=== PATIENT | male | born 2000 | race Caucasian/White ===

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

== ENCOUNTER 2021-09-23 06:34 | Emergency (ER) | payer OTHER ==
--- OUTSIDE RECORDS SUMMARY | 2021-09-23 06:38 | XMS REPORT | Continuity of Care Document ---
:2000 Author Organization [facility] t Address [address] [place] [address] [address] [place] [address] Care Team Providers Name Role Phone Care, Urgent Attending Clinician Unavailable Unknown Attending Clinician Unavailable Marquita LABOYP Attending Clinician UNKNOWN Attending Clinician Unavailable Payers Payer Name Policy Type Policy Number Effective Date Expiration Date S ource Problems Condition Condition Condition Status Onset Resolution Last Treating Co mments Source Name Details Category Date Date Treatment Clinician Date No known No known Disease Unive rs active active ity of problems problems [facility] Allergies, Adverse Reactions, Alerts Allergy Allergy Status Severity Reaction(s) Onset Inactive Treating Comm ents Source Name Type Date Date Clinician NO KNOWN Drug Active [facility] ALLERGIE Class ity of S [facility] Social History Social Habit Start Date Stop Date Quantity Comments [facility] to [facility]2 Not sure [facility] [place] [facility] Smoking Status Start Date Stop Date Source Unknown if ever smoked [facility] Medications Ordered Filled Start Stop Current Ordering Indication Dosage Frequency Signature Comments Components Source Medication Medication Date Date Medication? Clinician (SIG) Name Name No known No Univers medications [facility] Vital Signs Vital Name Observation Time Observation Value Comments Source Oxygen saturation in 2020-09-12 01:01:00 98 /min [facility] Arterial blood by [facility] Pulse oximetry Branch Respiratory rate 2020-09-12 01:01:00 16 /min [facility] Procedures This patient has no known procedures. Encounters Start End Encounter Admission Attending Care Care Encounter Source Date/Time Date/Time Type Type Clinicians Facility Department ID 2020-09-11 2020-09-11 Urgent Care, [facility] [id number] [facility] 18:47:52 19:15:10 Care Unknown, Attending Pediatric [id number] ity of Sandhya Juárez and [id number] [place] Adult [id number] [place] [id number] [facility] 2020-09-11 2020-09-11 Outpatient R UNKNOWN, [facility] [id number] Univers 19:00:00 19:00:00 ATTENDING ity of [facility] Results This patient has no known results.
[2021-09-23] MEDS ORDERED: KETOROLAC 30 MG/ML INJ ONE (07:52)
[2021-09-23] MEDS ORDERED: dexAMETHasone 10 MG/ML VIAL ONE (07:52)
[2021-09-23 08:55] LABS: SARS-COV-2 RT PCR NEGATIVE (NEGATIVE)
--- NOTE | 2021-09-23 09:38 | ER ---
Nurse's Notes [facility] Name: Orlando Renner Age: 21 yrs Sex: Male : 2000 Arrival Date: 09/23/2021 Time: 06:39 Bed 10 Private MD: Diagnosis: Acute pharyngitis, unspecified;Otitis media, unspecified, right ear Presentation: 09/23 07:17 Chief complaint: Parent and/or Guardian states: last week his throat was hurting and he iw had white pus, was negative for strep and covid last week , still having a lot of pain in his throat. Coronavirus screen: Client presents with at least one sign or symptom that may indicate coronavirus-19. Ebola Screen: Patient negative for fever greater than or equal to 101.5 degrees Fahrenheit, and additional compatible Ebola Virus Disease symptoms Patient denies exposure to infectious person. Patient denies travel to an Ebola-affected area in the 21 days before illness onset. No symptoms or risks identified at this time. Initial Sepsis Screen: Does the patient meet any 2 criteria? No. Patient's initial sepsis screen is negative. Does the patient have a suspected source of infection? No. Patient's initial sepsis screen is negative. Risk Assessment: Do you want to hurt yourself or someone else? Patient reports no desire to harm self or others. Onset of symptoms was September 18, 2020. 07:17 Method Of Arrival: Ambulatory iw 07:17 Acuity: CARA 3 iw Triage Assessment: 09:00 General: Appears in no apparent distress. Behavior is calm, cooperative. Respiratory: iw Reports. 09:00 Respiratory: Onset: The symptoms/episode began/occurred the patient has mild shortness iw of breath. Historical: - Allergies: 07:19 No Known Allergies; iw - Home Meds: 07:19 Adderall XR Oral [Active]; iw - PMHx: 07:19 ADD/ADHD; iw - PSHx: 07:19 None; iw - Immunization history:: Client reports having NOT received the Covid vaccine. - Social history:: Smoking status: Patient denies any tobacco usage or history of. Screenin:44 Abuse screen: Denies threats or abuse. Denies injuries from another. Nutritional iw screening: No deficits noted. Tuberculosis screening: No symptoms or risk factors identified. Fall Risk None identified. Assessment: 09:44 Reassessment: Patient appears in no apparent distress at this time. Patient and/or iw family updated on plan of care and expected duration. Pain level reassessed. Patient is alert, oriented x 3, equal unlabored respirations, skin warm/dry/pink. 09:44 Pain: Complains of pain in throat. Cardiovascular: Rhythm is regular. Respiratory: iw Airway is patent Respiratory effort is even, unlabored, Breath sounds are clear bilaterally. Vital Signs: 07:17 BP 137 / 74; Pulse 64; Resp 16; Temp 98.5; Pulse Ox 98% on R/A; iw ED Course: 06:39 Patient arrived in ED. wm 07:19 Triage completed. iw 07:20 Arm band placed on. iw 07:21 Danielito De La Cruz NP is PHCP. pm1 07:34 Idania Wilks, RN is Primary Nurse. iw 07:34 COVID-19/FLU A+B (Document "Date of Onset" if Symptomatic) Sent. mh5 07:34 Strep Sent. mh5 07:34 COVID swab sent to lab. Flu and/or RSV swab sent to lab. Strep swab sent to lab. mh5 07:36 Mihai Phillips MD is Attending Physician. pm1 07:36 Patient has correct armband on for positive identification. Bed in low position. Call mh5 light in reach. Warm blanket given. Pulse ox on. NIBP on. 07:50 [place] Screen Profile Sent. 5 09:44 No provider procedures requiring assistance completed. Patient did not have IV access iw during this emergency room visit. Administered Medications: 08:00 Drug: Decadron (dexamethasone) 10 mg Route: IM; Site: right gluteus; iw 12:23 Follow up: Response: No adverse reaction iw 08:00 Drug: Ketorolac 60 mg Route: IM; Site: left gluteus; iw 12:22 Follow up: Response: No adverse reaction iw Outcome: 09:38 Discharge ordered by . pm1 09:44 Discharged to home ambulatory, with family. iw 09:44 Condition: good 09:44 Discharge instructions given to patient, family, Instructed on discharge instructions, follow up and referral plans. medication usage, Demonstrated understanding of instructions, follow-up care, medications, Prescriptions given X 2. 09:45 Patient left the ED. iw Signatures: Idania Wilks, RN RN iw Danielito De La Cruz, DEVICE ENGINEER DEVICE ENGINEER pm1 , Sandhya 5 Anjana Cardenas
--- NOTE | 2021-09-23 09:38 | EDPHYS ---
Physician Documentation [facility] Name: Orlando Renner Age: 21 yrs Sex: Male : 2000 Arrival Date: 09/23/2021 Time: 06:39 Bed 10 Private MD: ED Physician Mihai Phillips HPI: 09/23 08:00 This 21 yrs old Male presents to ER via Ambulatory with complaints of Sore Throat. pm1 08:00 The patient presents with sore throat. The patient describes throat pain as raw, pm1 scratchy. Onset: The symptoms/episode began/occurred 1 week(s) ago. 08:00 Severity of symptoms: in the emergency department the symptoms are unchanged. Modifying pm1 factors: The symptoms are alleviated by nothing, the symptoms are aggravated by foods, swallowing, Patient's oral intake status: good unaware of sick contact. Associated signs and symptoms: Pertinent negatives cough, fever, nausea, vomiting. The patient has not experienced similar symptoms in the past. The patient has not recently seen a physician. Historical: - Allergies: 07:19 No Known Allergies; iw - Home Meds: 07:19 Adderall XR Oral [Active]; iw - PMHx: 07:19 ADD/ADHD; iw - PSHx: 07:19 None; iw - Immunization history:: Client reports having NOT received the Covid vaccine. - Social history:: Smoking status: Patient denies any tobacco usage or history of. ROS: 08:00 Constitutional: Negative for fever, chills, and weight loss. pm1 08:00 Cardiovascular: Negative for chest pain, palpitations, and edema, Respiratory: Negative for shortness of breath, cough, wheezing, and pleuritic chest pain, Abdomen/GI: Negative for abdominal pain, nausea, vomiting, diarrhea, and constipation, Back: Negative for injury and pain, MS/Extremity: Negative for injury and deformity, Skin: Negative for injury, rash, and discoloration, Neuro: Negative for headache, weakness, numbness, tingling, and seizure. 08:00 ENT: Positive for ear pain, sore throat. 08:00 Neck: Positive for swollen nodes. 08:00 All other systems are negative. Exam: 08:00 Constitutional: This is a well developed, well nourished patient who is awake, alert, pm1 and in no acute distress. Head/Face: Normocephalic, atraumatic. 08:00 Skin: Warm, dry with normal turgor. Normal color with no rashes, no lesions, and no evidence of cellulitis. MS/ Extremity: Pulses equal, no cyanosis. Neurovascular intact. Full, normal range of motion. 08:00 Eyes: Exam is negative for acute changes, Extraocular movements: intact throughout, Conjunctiva: no acute changes, no injection. 08:00 ENT: Exam is negative for acute changes, Mouth: no acute changes, Lips: normal, moist, Oral mucosa: normal, pink and intact, moist, Posterior pharynx: Tonsils: bilaterally enlarged, with erythema, with exudate, no ulcerations, peritonsillar mass, is not appreciated, pooling of secretions, is not appreciated. 08:00 Neck: Lymph nodes: lymphadenopathy is appreciated, anterior cervical nodes. 08:00 Cardiovascular: Exam negative for acute changes, Rate: normal, Rhythm: regular, Pulses: no pulse deficits are appreciated, Heart sounds: normal, normal S1and S2. 08:00 Respiratory: Exam negative for acute changes, respiratory distress, shortness of breath, Breath sounds: are clear throughout. 08:00 Abdomen/GI: Exam negative for acute changes, Inspection: abdomen appears normal, Palpation: abdomen is soft and non-tender, in all quadrants. 08:00 Neuro: Exam negative for acute changes, Orientation: is normal, Mentation: is normal, Motor: is normal, moves all fours. Vital Signs: 07:17 BP 137 / 74; Pulse 64; Resp 16; Temp 98.5; Pulse Ox 98% on R/A; iw MDM: 07:22 Patient medically screened. pm1 09:37 Data reviewed: vital signs. Data interpreted: Pulse oximetry: on room air is 98 %. pm1 Interpretation: normal. Counseling: I had a detailed discussion with the patient and/or guardian regarding: the historical points, exam findings, and any diagnostic results supporting the discharge/admit diagnosis, lab results, the need for outpatient follow up, to return to the emergency department if symptoms worsen or persist or if there are any questions or concerns that arise at home. 09/23 07:32 Order name: COVID-19/FLU A+B (Document "Date of Onset" if Symptomatic); Complete Time: pm1 09:03 09/23 07:32 Order name: Strep; Complete Time: 08:36 pm1 09/23 07:34 Order name: [place] Screen Profile; Complete Time: 08:24 pm1 09/23 08:35 Order name: Throat Culture EDMS Administered Medications: 08:00 Drug: Decadron (dexamethasone) 10 mg Route: IM; Site: right gluteus; iw 12:23 Follow up: Response: No adverse reaction iw 08:00 Drug: Ketorolac 60 mg Route: IM; Site: left gluteus; iw 12:22 Follow up: Response: No adverse reaction iw Disposition: 13:19 Co-signature as Attending Physician, Mihai Phillips MD I agree with the assessment and kdr plan of care. Disposition Summary: 09/23/21 09:38 Discharge Ordered Location: Home pm1 Problem: new pm1 Symptoms: have improved pm1 Condition: Stable pm1 Diagnosis - Acute pharyngitis, unspecified pm1 - Otitis media, unspecified, right ear pm1 Followup: pm1 - With: Emergency Department - When: As needed - Reason: Worsening of condition Followup: pm1 - With: Private Physician - When: 2 - 3 days - Reason: Recheck today's complaints, Continuance of care, Re-evaluation by your physician Discharge Instructions: - Discharge Summary Sheet pm1 - Otitis Media, Adult pm1 - Sore Throat pm1 Forms: - Medication Reconciliation Form pm1 - Thank You Letter pm1 - Antibiotic Education pm1 - Prescription Opioid Use pm1 Prescriptions: - Augmentin 875-125 mg Oral Tablet - take 1 tablet by ORAL route every 12 hours for 10 days; 20 tablet; Refills: 0, pm1 Product Selection Permitted - Tylenol-Codeine #3 300 mg-30 mg Oral - take 2 tablet by ORAL route every 6 hours As needed; 20 tablet; Refills: 0, pm1 Product Selection Permitted Signatures: Dispatcher [employer] EDMihai Hong MD MD kdr Williams, Irene, RN RN iw Danielito De La Cruz, LISA [employer] ARCHITECT pm1
[2021-09-23 09:50] VITALS: BP 137/74; TEMP 98.5; O2SAT 98
== END 2021-09-23 09:45 | disposition home or self-care (01) ==
LOC: ER 06:34
DX: J02.9 Acute pharyngitis, unspecified (principal); H66.91 Otitis media, unspecified, right ear; Z20.822 Contact with and (suspected) exposure to COVID-19
CPT/HCPCS: 87070; 36415; 86308; 87081; 0240U; 96372; 99284; J1100

== ENCOUNTER 2022-01-07 22:31 | Emergency (ER) | payer OTHER ==
--- OUTSIDE RECORDS SUMMARY | 2022-01-07 22:34 | XMS REPORT | Continuity of Care Document ---
:2000 Author Organization [facility] t Address [address] [place] [address] [address] [place] [address] Care Team Providers Name Role Phone Care, [...] rs active active ity of problems problems [facility] Allergies, Adverse Reactions, Alerts Allergy Allergy Status Severity Reaction(s) Onset Inactive Treating Comm ents Source Name Type Date Date Clinician NO KNOWN Drug Active Univers ALLERGIE Class ity of S [facility] Social History Social Habit Start Date Stop Date Quantity Comments [facility] to SARS-[facility]-2 Not sure [facility] [place] [facility] Smoking Status Start Date Stop Date Source Unknown if ever smoked [facility] Medications Ordered Filled Start Stop Current Ordering Indication Dosage Frequency Signature Comments Components Source Medication Medication Date Date Medication? Clinician (SIG) Name Name No known No Univers medications [facility] Vital Signs Vital Name Observation Time Observation Value Comments Source Oxygen saturation in 2020-09-12 01:01:00 98 /min [facility] Arterial blood by [facility] Pulse oximetry Branch Respiratory rate 2020-09-12 01:01:00 16 /min [facility] Procedures This patient has no known procedures. Encounters Start End Encounter Admission Attending Care Care Encounter Source Date/Time Date/Time Type Type Clinicians Facility Department ID 2020-09-11 2020-09-11 Urgent [facility], [facility] [id number] Univers 18:47:52 19:15:10 Care Unknown, Attending Pediatric [id number] ity of Sandhya Juárez and [id number] [place] Adult [id number] [place] [address] [facility] 2020-09-11 2020-09-11 Outpatient R UNKNOWN, [facility] [id number] Univers 19:00:00 19:00:00 ATTENDING ity of [facility] Results This patient has no known results.
--- NOTE | 2022-01-07 23:20 | ER ---
Nurse's Notes [facility] Name: Orlando Renner Age: 21 yrs Sex: Male : 2000 Arrival Date: 01/07/2022 Time: 22:40 Bed Waiting Private MD: Diagnosis: Acute pharyngitis, unspecified Presentation: 01/07 22:46 Chief complaint: Patient states: sore throat starting yesterday pain 10/10. body aches al4 started this morning. patient reports sweating all night, and taking Tylenol around 8pm for fever. Coronavirus screen: Vaccine status: Patient reports being unvaccinated. Ebola Screen: No symptoms or risks identified at this time. Initial Sepsis Screen: Does the patient meet any 2 criteria? No. Patient's initial sepsis screen is negative. Does the patient have a suspected source of infection? No. Patient's initial sepsis screen is negative. Risk Assessment: Do you want to hurt yourself or someone else? Patient reports no desire to harm self or others. Onset of symptoms was January 06, 2022. 22:46 Method Of Arrival: Ambulatory al4 22:46 Acuity: CARA 4 al4 Triage Assessment: 22:50 General: Appears in no apparent distress. uncomfortable, Behavior is calm, cooperative, al4 patient reports sore throat and generalized body aches. denies congestion, n/v/d . Pain: Complains of pain in throat Pain currently is 10 out of 10 on a pain scale. EENT: Throat is reddened. Neuro: Level of Consciousness is awake, alert, obeys commands, Oriented to person, place, time, situation. Cardiovascular: Patient's skin is warm and dry. Respiratory: Airway is patent Respiratory effort is unlabored, Respiratory pattern is regular, Breath sounds are clear bilaterally. Historical: - Allergies: 22:50 No Known Allergies; al4 - Immunization history:: Adult Immunizations up to date. - Social history:: Smoking status: Patient reports the use of cigarette tobacco products, denies chronic smoking, but will smoke occasionally, Reported history of juuling and/or vaping. Screenin:06 Abuse screen: Denies threats or abuse. Nutritional screening: No deficits noted. al4 Tuberculosis screening: No symptoms or risk factors identified. Fall Risk No fall in past 12 months (0 pts). No IV (0 pts). Ambulatory Aid- None/Bed Rest/Nurse Assist (0 pts). Gait- Normal/Bed Rest/Wheelchair (0 pts) Mental Status- Oriented to own ability (0 pts). Total Prieto Fall Scale indicates No Risk (0-24 pts). Assessment: 23:06 Reassessment: ER PA assessed patient in triage room. al4 23:09 Reassessment: see triage assessment. al4 23:12 Reassessment: Patient appears in no apparent distress at this time. Patient is alert, al4 oriented x 3, equal unlabored respirations, skin warm/dry/pink. 23:38 Reassessment: Patient appears in no apparent distress at this time. Patient is alert, al4 oriented x 3, equal unlabored respirations, skin warm/dry/pink. Vital Signs: 22:46 BP 128 / 78; Pulse 74; Resp 18; Temp 99.4(O); Pulse Ox 95% on R/A; Weight 70.31 kg; al4 Height 5 ft. 11 in. (180.34 cm); Pain 10/10; 23:25 BP 118 / 72; Pulse 60; Resp 18; Pulse Ox 100% ; al4 22:46 Body Mass Index 21.62 (70.31 kg, 180.34 cm) al4 ED Course: 22:40 Patient arrived in ED. jj6 22:50 Triage completed. al4 22:50 Arm band placed on left wrist. al4 23:05 Brando Russell is Primary Nurse. al4 23:06 Patient has correct armband on for positive identification. al4 23:06 Strep Sent. al4 23:06 No provider procedures requiring assistance completed. Patient did not have IV access al4 during this emergency room visit. 23:07 Mickey Maria PA is PHCP. kortney 23:07 Praveen Eaton MD is Attending Physician. kortney 23:20 Duyen Gomes MD is Referral Physician. [facility] Administered Medications: 23:29 Drug: Decadron (dexamethasone) 10 mg Route: IM; Site: left gluteus; al4 23:38 Follow up: Response: No adverse reaction al4 Outcome: 23:20 Discharge ordered by . kortney 23:38 Discharged to home ambulatory. al4 23:38 Condition: stable 23:38 Discharge instructions given to patient, Instructed on discharge instructions, follow up and referral plans. medication usage, Demonstrated understanding of instructions, follow-up care, medications, Prescriptions given X 1. 23:39 Patient left the ED. al4 Signatures: Mickey Maria PA PA jmm Jeffries, Jennifer jj6 Brando Russell al4 Corrections: (The following items were deleted from the chart) 23:07 22:50 EENT: Throat is pink al4 al4 23:08 22:50 Respiratory: Airway is patent Respiratory effort is unlabored, Respiratory al4 pattern is regular, al4 23:13 23:06 COVID-19/FLU A+B/RSV+[email or web address].BRZ drawn and sent. al4 EDMS
--- NOTE | 2022-01-07 23:20 | EDPHYS ---
Physician Documentation [facility] Name: Orlando Renner Age: 21 yrs Sex: Male : 2000 Arrival Date: 01/07/2022 Time: 22:40 Bed Waiting Private MD: ED Physician Praveen Eaton HPI: 01/07 23:17 This 21 yrs old Male presents to ER via Ambulatory with complaints of Sore Throat. jmm 23:17 The patient presents with sore throat. Onset: The symptoms/episode began/occurred jmm gradually. Modifying factors: The symptoms are alleviated by nothing, the symptoms are aggravated by nothing. This is a 21-year-old year old male with no chronic medical conditions that presents to the ED with complaints of sore throat beginning today. Complains of chills. Denies sob. . Historical: - Allergies: 22:50 No Known Allergies; al4 - Immunization history:: Adult Immunizations up to date. - Social history:: Smoking status: Patient reports the use of cigarette tobacco products, denies chronic smoking, but will smoke occasionally, Reported history of juuling and/or vaping. ROS: 23:17 Constitutional: Negative for fever, chills, and weight loss. jmm 23:17 Cardiovascular: Negative for chest pain, palpitations, and edema, Respiratory: Negative for shortness of breath, cough, wheezing, and pleuritic chest pain, Abdomen/GI: Negative for abdominal pain, nausea, vomiting, diarrhea, and constipation. 23:17 ENT: Positive for sore throat. 23:17 All other systems are negative. Exam: 23:17 Constitutional: This is a well developed, well nourished patient who is awake, alert, jmm and in no acute distress. Head/Face: atraumatic. Eyes: EOMI, no conjunctival erythema appreciated 23:17 Neck: Trachea midline, Supple Chest/axilla: Normal chest wall appearance and motion. Cardiovascular: Regular rate and rhythm. No edema appreciated Respiratory: Normal respirations, no respiratory distress appreciated Abdomen/GI: Non distended, soft Back: Normal ROM Skin: General appearance color normal MS/ Extremity: Moves all extremities, no obvious deformities appreciated, no edema noted to the lower extremities Neuro: Awake and alert Psych: Behavior is normal, Mood is normal, Patient is cooperative and pleasant 23:17 ENT: Posterior pharynx: Tonsils: enlarged on the right, enlarged on the left, with erythema, with exudate, erythema, that is moderate. Vital Signs: 22:46 BP 128 / 78; Pulse 74; Resp 18; Temp 99.4(O); Pulse Ox 95% on R/A; Weight 70.31 kg; al4 Height 5 ft. 11 in. (180.34 cm); Pain 10/10; 23:25 BP 118 / 72; Pulse 60; Resp 18; Pulse Ox 100% ; al4 22:46 Body Mass Index 21.62 (70.31 kg, 180.34 cm) al4 MDM: 23:18 Data reviewed: vital signs, nurses notes. Counseling: I had a detailed discussion with kortney the patient and/or guardian regarding: the historical points, exam findings, and any diagnostic results supporting the discharge/admit diagnosis, the need for outpatient follow up, to return to the emergency department if symptoms worsen or persist or if there are any questions or concerns that arise at home. ED course: Patient is alert nontoxic in appearance NAD. I do not suspect peritonsillar abscess. Patient advised follow-up PCP and otherwise no strict return precautions. Patient understood and agrees with the plan of care. . 23:20 Patient medically screened. [facility] 01/07 22:58 Order name: Strep al 01/07 23:07 Order name: COVID-19/FLU A+B/RSV EDNC Administered Medications: 23:29 Drug: Decadron (dexamethasone) 10 mg Route: IM; Site: left gluteus; al4 23:38 Follow up: Response: No adverse reaction al4 Disposition Summary: 01/07/22 23:20 Discharge Ordered Location: Home [facility] Condition: Stable [facility] Diagnosis - Acute pharyngitis, unspecified [facility] Followup: [facility] - With: Duyen Gomes MD - When: 2 - 3 days - Reason: Recheck today's complaints, Continuance of care, Re-evaluation by your physician Discharge Instructions: - Discharge Summary Sheet [facility] - Pharyngitis [facility] Forms: - Medication Reconciliation Form [facility] - Thank You Letter [facility] - Antibiotic Education [facility] - Prescription Opioid Use [facility] Prescriptions: - Amoxicillin 875 mg Oral Tablet - take 1 tablet by ORAL route every 12 hours for 10 days; 20 tablet; Refills: 0, kortney Product Selection Permitted Signatures: Dispatcher [employer] EDMS Mickey Maria PA PA jmm Ledbetter, Alexis al4 Corrections: (The following items were deleted from the chart) 23:13 23:05 COVID-19/FLU A+B/RSV+MOL.LAB.BRZ ordered. EDMS EDMS
[2022-01-07] MEDS ORDERED: dexAMETHasone 10 MG/ML VIAL ONE (23:26)
[2022-01-07 23:55] LABS: SARS-COV-2 RT PCR NEGATIVE (NEGATIVE)
[2022-01-08 00:56] VITALS: BP 118/72; TEMP 99.4; O2SAT 100
== END 2022-01-07 23:39 | disposition home or self-care (01) ==
LOC: ER 22:31
DX: J02.9 Acute pharyngitis, unspecified (principal); F17.210 Nicotine dependence, cigarettes, uncomplicated; Z20.822 Contact with and (suspected) exposure to COVID-19
CPT/HCPCS: 87070; 87081; 0241U; J1100; 96372; 99283